=== PATIENT | female | born 1980 | race Two or more races ===

== ENCOUNTER → 2016-11-20 | Outpatient (CLI) | payer MEDICAID ==
--- NOTE | 2016-11-20 16:56 | US ---
First Trimester Obstetrical Sonography Clinical History: 36-year-old female with advanced maternal age with some spotting which began last n ight, although has not recurred. Assess viability. ICD-10 Diagnostic Code: 020.9. Technique: Initially, a curvilinear 5 MHz transducer was used to sonographically evaluate the pelvis, using a full urinary bladder as a window. M-mode Doppler was used, and cine clips at the level of th e gestational sac were acquired. Comparison Study: None available. LMP: September 01, 2016, indicating an age of 11 weeks 3 days, and an estimated date of delivery of Jun. Findings: There is a single viable intrauterine gestation with a crown-rump length of 45 mm, correspo nding to an age of 11 weeks 3 days, which is concordant with menstrual dating. There is a tiny subcho rionic hemorrhage along the lower uterine segment measuring 1.7 x 0.9 x 1.7 cm. There is no intrinsic vascularity. The gestational sac is well-circumscribed, and a 3.7 mm yolk sac is observed. The heart rate is 176 beats per minute. The uterus measures 13.0 x 10.2 x 8.0 cm, and there is a right-s ided intramural, heterogeneous-appearing fibroid measuring 3.3 x 4.0 x 3.8 cm. The right ovary measur es 3.9 x 2.5 x 4.5 cm, and contains a 2.0 x 1.5 x 1.9 cm corpus luteum cyst. The left ovary measures 3.1 x 2.3 x 3.2 cm. Impression: 1. There is a single viable intrauterine gestation with biometry concordant with menstrual dating. 2. There is a tiny lower uterine segment subchorionic hemorrhage. 3. There is a 4.0 cm right uterine midbody intramural leiomyoma. 4. Normal maternal ovaries. I attempted to contact Dr. Daniel Hogan at the provided number ([phone], at the [facility]) at 4:45 p.m. on WednesdayNovember 20, 2016; however, the office had closed and e phone tree did not allow a message to be left, or the option of contacting an on-call provider.
== END ==
LOC: FIMAGING 15:27
DX: O20.8 Other hemorrhage in early pregnancy (principal); O09.511 Supervision of elderly primigravida, first trimester; O34.11 Maternal care for benign tumor of corpus uteri, first trimester; Z3A.11 11 weeks gestation of pregnancy

== ENCOUNTER → 2016-12-01 | Outpatient (CLI) | payer MEDICAID ==
--- NOTE | 2016-12-01 15:57 | US ---
Dear VIBHA Vazquez, Thank you very much for allowing us to see your patient, Estefany Brown. As you know, she is a 36 ye ar old, who was asked to see us to confirm dating and for 1st trimester genetic screening. H er is complicated by advanced maternal age and hypothyroidism. Estefany's medical history is significant for hypothyroidism which is controlled on Synthroid 125 mc g daily. Her most recent TSH was 1.52 on 11/13/16. Her past surgical history is negative. Her OB histor y is significant for a 1st trimester SAB and a term, vaginal delivery that was complicated by A2GDM. She has had a negative early Glucola and normal HgbA1C. She denies any cramping, leakage of fluid, or vaginal bleeding. LMP: 09/01/16, and 11 week US Gestational Age by Dates: 13 weeks 0 days EDC: 06/08/17 US FINDINGS: Number: 1 Placenta: Anterior FHR: 163 bpm CRL: 61 mm Gestational Age: 12 weeks 3 days Nuchal Translucency: 2.2 mm Nasal Bone: Present Evaluation of first trimester anatomy shows a normal calvarium, choroid plexus, abdominal cord insert ion, legs, and arms. IMPRESSION: 1. Genetic Screening: Today, we saw a normal NT measurement and a nasal bone. These findings decrease the risk of Trisomy 21. We discussed the option of additional screening with either the Sequen tial Screen, which has a 95% detection rate for Trisomy 21 and also screens for ONTD and Trisomy 18, or NIPT, which has a 99% detection rate for Trisomy 21 and also screens for Trisomy 13 & 18 and sex c hromosome aneuploidy. Lastly, we discussed the option of diagnostic testing via CVS or amniocentesis which is the only way to definitively exclude aneuploidy. After our discussion, the couple opte d to proceed with NIPT. - NIPT blood draw performed today. We will call the patient with the results. - MS-AFP level after 15 weeks to screen for ONTD. - Anatomy US at 19-20 weeks. 2. EDC: Based on today's ultrasound, the CRL is consistent with the previously stated EDC of 06/08/17, which is based on LMP and 11 week US. This should be finalized as her due date. 3. Hypothyroidism: Goal TSH throughout is <3.0. The patient is at goal with a TSH of 1.52 o n Synthroid 125 mcg. - Check TSH level every trimester and 4-6 weeks after all dosing changes - Titrate Synthroid dose to maintain goal TSH Thank you again for sending this patient to see us today. Approximately 15 minutes of a total visit t [place] of 12 minutes were spent with this patient today in direct face to face counseling regarding stephanie y's US findings and the above recommendations. If you have any questions, please do not hesitate to contact me at . Marisol Mckinney MD Maternal- Medicine
--- NOTE | 2016-12-01 17:15 | US ---
Obstetrical Sonogram History: 36-year-old with a gestational age of 13 weeks 0 days and EDC of June 08, 2017. Comparison: OB ultrasound November 20, 2016. Findings: There is a single living intrauterine with a heart rate of 163 beats per minute. Average crown-rump length is 6.1 cm, for estimated gestational age of 12 weeks 3 days. Nuchal trans lucency is 2.2 mm. The nasal bone is visible. The amniotic fluid volume is subjectively normal. No overt anatomic abnormality is identified, although assessment is limited by early gestational age. The placenta is anterior. The ovaries are normal. Impression: 1. Single living intrauterine gestation with size consistent with dates. 2. Normal nuchal translucency. 3. Detailed anatomic survey is recommended at 19-20 weeks. Please see separate dictation for consultation performed by Marisol Mckinney MD, the same shine gonzales.
== END ==
LOC: FIMAGING 12:37
PROVIDERS: ATTEND Physician Assistant
DX: O09.91 Supervision of high risk pregnancy, unspecified, first trimester (principal); O09.521 Supervision of elderly multigravida, first trimester; Z3A.13 13 weeks gestation of pregnancy

== ENCOUNTER → 2017-01-18 | Outpatient (CLI) | payer MEDICAID | LOC: FIMAGING 08:31 | PROVIDERS: ATTEND Physician Assistant | DX: O09.522 Supervision of elderly multigravida, second trimester (principal); Z3A.19 19 weeks gestation of pregnancy ==

== ENCOUNTER → 2017-03-25 | Outpatient (CLI) | payer MEDICAID | LOC: FIMAGING 09:36 | PROVIDERS: ATTEND Physician Assistant | DX: O09.523 Supervision of elderly multigravida, third trimester (principal); O24.410 Gestational diabetes mellitus in pregnancy, diet controlled; Z3A.29 29 weeks gestation of pregnancy ==

== ENCOUNTER → 2017-05-06 | Outpatient (CLI) | payer MEDICAID | LOC: FIMAGING 12:20 | PROVIDERS: ATTEND Physician Assistant | DX: O09.523 Supervision of elderly multigravida, third trimester (principal); Z3A.35 35 weeks gestation of pregnancy ==